=== PATIENT | male | born 1945 | race Caucasian/White ===

== ENCOUNTER 2021-09-18 06:15 | Day surgery (SDC) | payer MEDICARE, OTHER, SELFPAY ==
[2021-09-18] VITALS (9 sets, daily range): BP systolic 124–148; BP diastolic 66–104; PULSE 64–70; RESP 16–17; TEMP 36.8–37.2; O2SAT 96–100; BMI 27.3
[2021-09-18] MEDS: Lactated Ringers 1,000 ML 15 ML IV (07:01)
--- NOTE | 2021-09-18 07:03 | HP.PCM_ITS ---
HPI - General HPI Narrative TRAVIS MARTÍNEZ, is a 75 M who presents for a surveillance colonoscopy. He has had a previous history of colon polyps. He enjoys good health. No bright red blood per rectum or melena. Previous exam approximately 6 years ago. He presents via open access today. [facility] Medical History Arthritis Back pain Cardiology follow-up encounter COVID Enlarged aorta History of echocardiogram History of palpitations Hypothyroid Injury of head and neck Non-smoker Home Medications levothyroxine 125 mcg tablet 125 mcg PO DAILY 08/28/21 [History Last Taken Unknown] Allergy/AdvReac Type Severity Reaction Status Date / Time Sulfa (Sulfonamide Allergy Severe Upset Verified 09/18/21 06:50 Antibiotics) Stomach Opioids - Morphine Analogues AdvReac Severe Nausea/Vom/ Verified 09/18/21 06:50 Diarrhea Surgical History History of lumbar laminectomy Hx of hernia repair Hx of repair of left rotator cuff Hx of tonsillectomy Hx of total thyroidectomy Social History household members: spouse current occupational status: retired Smoking Status: Never smoker ROS Constitutional Constitutional: Reports systems reviewed and no addt'l complaints, except as documented Cardiovascular Cardiovascular: Denies chest pain Respiratory/Chest Respiratory/Chest: Denies shortness of breath at rest Gastrointestinal Gastrointestinal: Denies abdominal pain, change in bowel habits, hematochezia or melena Vital Signs Vital Signs Vital Signs: 09/18/21 06:56 09/18/21 06:58 Temperature 98.3 F Temperature Source Temporal Pulse Rate 70 Respiratory Rate 17 Respiratory Pattern Normal Blood Pressure 133/89 H Blood Pressure Mean 103 Blood Pressure Source Monitor Blood Pressure Position Sitting Blood Pressure Location Right Arm Pulse Ox 100 Oxygen Delivery Method Room Air Weight Weight: 180 lb Body Mass Index (BMI) 27.3 Physical Exam Const alert, oriented x3 and no apparent distress General Appearance: cooperative and comfortable Eyes General Eye: normal appearance of both eyes Neck General: normal visual inspection Chest inspection of chest normal Resp Effort and Inspection: able to speak in complete sentences and symmetric chest movement Auscultation: clear to auscultation bilaterally Cardio regular rate and regular rhythm GI soft to palpation, non-tender and non-distended Extremity no calf tenderness Neuro oriented x3 Psych thought process normal Assessment & Plan Assessment/Plan (1) Encounter for screening for malignant neoplasm of colon: PLAN: Surveillance colonoscopy for colon malignancy. The patient presents via open access. He is aware of technique, benefit, risk and alternatives. We will proceed as noted. Mathieu Russell M.D., F.A.C.S.
[2021-09-18] MEDS: fentaNYL 100 MCG/2 ML Ampul (07:51)
[2021-09-18] MEDS: Ondansetron 4 MG/2 ML Vial (07:51)
[2021-09-18] MEDS: Midazolam 5 MG/ML Syringe (07:51)
--- NOTE | 2021-09-18 08:16 | OP.COLON_ITS ---
Patient Name: Tremaine Fernández Procedure Date: 09/18/2021 7:43 AM Date of : 1945 Age: 75 Procedure: Colonoscopy Indications: Family history of colon cancer in a first-degree relative Providers: Mathieu Russell MD Medicines: Midazolam 3.5 mg IV, Fentanyl 100 micrograms IV, Ondansetron 4 mg IV Patient Profile: Last Colonoscopy: 5 years ago. Complications: No immediate complications. Procedure: Pre-Anesthesia Assessment: - Prior to the procedure, a History and Physical was performed, and patient medications and allergies were reviewed. The patient's tolerance of previous anesthesia was also reviewed. The risks and benefits of the procedure and the sedation options and risks were discussed with the patient. All questions were answered, and informed consent was obtained. Prior Anticoagulants: The patient has taken no previous anticoagulant or antiplatelet agents. ASA Grade Assessment: II - A patient with mild systemic disease. After reviewing the risks and benefits, the patient was deemed in satisfactory condition to undergo the procedure. After I obtained informed consent, the scope was passed under direct vision. Throughout the procedure, the patient's blood pressure, pulse, and oxygen saturations were monitored continuously. The pediatric colonoscope was introduced through the anus and advanced to the cecum, identified by appendiceal orifice and ileocecal valve. The colonoscopy was performed without difficulty. The patient tolerated the procedure well. The quality of the bowel preparation was good. Moderate Sedation: Moderate (conscious) sedation was personally administered by the endoscopist. The following parameters were monitored: oxygen saturation, heart rate, blood pressure, and response to care. Total physician intraservice time was 15 minutes. Scope In: 7:54:27 AM Scope Withdrawal Time 0 hours 7 minutes 57 seconds Scope Out: 8:09:39 AM Total Procedure Duration Time 0 hours 15 minutes 12 seconds Findings: Hemorrhoids were found on perianal exam. A few diverticula were found in the sigmoid colon. The exam was otherwise without abnormality. Impression: - Hemorrhoids found on perianal exam. - Diverticulosis in the sigmoid colon. - The examination was otherwise normal. - No specimens collected. Recommendation: - Discharge patient to home. - Resume previous diet. - Continue present medications. - Repeat colonoscopy in 5 years for surveillance. Procedure Code(s): --- Professional --- 11407, Colonoscopy, flexible; diagnostic, including collection of specimen(s) by brushing or washing, when performed (separate procedure) 28245, 59, Moderate sedation services provided by the same physician or other qualified health pediatric critical care nurse performing the diagnostic or therapeutic service that the sedation supports, requiring the presence of an independent trained observer to assist in the monitoring of the patient's level of consciousness and physiological status; initial 15 minutes of intraservice time, patient age 5 years or older Diagnosis Code(s): --- Professional --- K64.9, Unspecified hemorrhoids Z80.0, Family history of malignant neoplasm of digestive organs K57.30, Diverticulosis of large intestine without perforation or abscess without bleeding CPT copyright 2017 [employer]. All rights reserved. The codes documented in this report are preliminary and upon doctor of dental medicine review may be revised to meet current compliance requirements. Mathieu Russell MD 09/18/2021 8:16:29 AM This report has been signed electronically. Number of Addenda: 0 Note Initiated On: 09/18/2021 7:43 AM
== END 2021-09-18 09:00 | disposition home or self-care (01) ==
LOC: EN 06:23 → AC 06:28
PROVIDERS: PCP Family Medicine; Referring Provider Family Medicine; Visit Provider Surgery
PROC: 0DJD8ZZ Inspection of Lower Intestinal Tract, Via Natural or Artificial Opening Endoscopic (ICD-10-PCS; CPT 45378; principal; 2021-09-18 07:25)
DX: Z12.11 Encounter for screening for malignant neoplasm of colon (principal); K57.30 Diverticulosis of large intestine without perforation or abscess without bleeding; K64.9 Unspecified hemorrhoids; E03.9 Hypothyroidism, unspecified; Z80.0 Family history of malignant neoplasm of digestive organs; Z79.899 Other long term (current) drug therapy; Z86.010 Personal history of colon polyps; Z86.16 Personal history of COVID-19
CPT/HCPCS: 45378; 99152; 99153; J7120; J2405